=== PATIENT | female | born 1985 ===

== ENCOUNTER → 2017-08-15 | Outpatient (CLI) | payer OTHER | LOC: LAB 12:16 → LAB SHORT 12:16 | DX: N30.01 Acute cystitis with hematuria (principal); N39.0 Urinary tract infection, site not specified | CPT/HCPCS: 87077; 87086; 87186 ==

== ENCOUNTER → 2020-05-18 | Outpatient (CLI) | payer OTHER | LOC: LAB SHORT 09:45 → LAB 09:45 | DX: R35.0 Frequency of micturition (principal) | CPT/HCPCS: 87086 ==

== ENCOUNTER → 2022-05-09 | Outpatient (CLI) | payer OTHER ==
[2022-05-10 15:11] LABS: HPV 16 Negative (Negative); HPV 18 Negative (Negative); HPV OTHER HR TYPES Negative (Negative)
== END | disposition home or self-care (01) ==
LOC: LAB SHORT 14:38
PROVIDERS: Obstetrics & Gynecology
DX: Z01.419 Encounter for gynecological examination (general) (routine) without abnormal findings (principal)
CPT/HCPCS: 87624; G0145